=== PATIENT | male | born 1970 | race Asian ===

== ENCOUNTER 2019-01-10 12:12 | Inpatient (IN) | payer OTHER ==
[~2019-01-10] VITALS: Ht 172.7 cm; Wt 70.9 kg
[2019-01-10] MEDS ORDERED: dilTIAZem HCl 25mg/5ml Inj IVP ONE (12:15)
[2019-01-10 12:20] VITALS: BP 128/91
[2019-01-10] MEDS ORDERED: LORazepam Inj 2mg/ml 1ml IV ONE (12:30)
[2019-01-10] MEDS ORDERED: QUETIAPINE FUMA25 MG ORAL (12:34)
[2019-01-10] MEDS ORDERED: KEPPRA500 M4 ORAL (12:34)
[2019-01-10 12:40] LABS: HEMATOCRIT 48.5 % (42.0-52.0); HEMOGLOBIN 16.9 G/DL (14.2-18.0); MEAN CORPUSCULAR VOLUME 91 FL (80-99); PLATELET COUNT 366 K/UL (150-450); RED BLOOD COUNT 5.32 M/UL (4.70-6.10); RED CELL DISTRIBUTION WIDTH 10.2 % (11.6-14.8); WHITE BLOOD COUNT 10.6 K/UL (4.8-10.8)
[2019-01-10 12:46] LABS: INR 0.9 (0.9-1.1)
--- NOTE | 2019-01-10 13:39 | Emergency Room Report ---
History of Present Illness General Chief Complaint: Palpitations Source: Patient Present Illness HPI 48-year-old male history of speech impediment, presents with palpitations that started at 9:30 AM, he denies any chest pain shortness of breath no nausea no vomiting he states the palpitations came out of nowhere he states he has had tachycardia in the past that has self resolved, no aggravating or relieving factors severity is moderate, constant patient presents for evaluation via EMS Allergies: Coded Allergies: No Known Allergies (Unverified , 01/10/19) Patient History Past Medical History: see triage record Reviewed Nursing Documentation: PMH: Agreed; PSxH: Agreed Nursing Documentation-PMH Past Medical History: No History, Except For Hx Cardiac Problems: No - brain cyst Hx Hypertension: Yes Review of Systems All Other Systems: negative except mentioned in HPI Physical Exam Vital Signs Date Time Temp Pulse Resp B/P (MAP) Pulse Ox O2 Delivery O2 Flow Rate FiO2 01/10/19 12:08 100.0 122 16 148/100 (116) 99 Room Air Sp02 EP Interpretation: reviewed, normal General Appearance: well appearing, no apparent distress, alert Head: normocephalic, atraumatic Eyes: bilateral eye PERRL, bilateral eye EOMI ENT: uvula midline, moist mucus membranes Neck: supple, thyroid normal, supple/symm/no masses Respiratory: lungs clear, no respiratory distress, no retraction, no accessory muscle use Cardiovascular #1: normal peripheral pulses, no edema, no gallop, no murmur, tachycardia Gastrointestinal: non tender, no guarding, no rebound, distended Musculoskeletal: normal inspection Neurologic: alert, oriented x3 Psychiatric: mood/affect normal Skin: no rash, warm/dry Medical Decision Making Diagnostic Impression: Primary Impression: Palpitations Additional Impressions: 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 Bowel obstruction Qualified Codes: K56.609 - Unspecified intestinal obstruction, unspecified as to partial versus complete obstruction ER Course 48-year-old male presents with palpitations, differential diagnosis includes hypothyroidism, AVNRT, polysubstance abuse We will start hydration, will provide Ativan, liters of fluid were given Repeat EKG 1310: Sinus tachycardia, rate 119, QTc 450, no acute ST elevations, normal axis Reevaluation 3:16 PM, patient found to have an obstruction on CT pyloric stenosis NG tube inserted, patient will be admitted to the hospital for possible operative management Laboratory Tests Test 01/10/19 12:20 01/10/19 13:47 White Blood Count 10.6 K/UL (4.8-10.8) Red Blood Count 5.32 M/UL (4.70-6.10) Hemoglobin 16.9 G/DL (14.2-18.0) Hematocrit 48.5 % (42.0-52.0) Mean Corpuscular Volume 91 FL (80-99) Mean Corpuscular Hemoglobin 31.7 PG (27.0-31.0) H Mean Corpuscular Hemoglobin Concent 34.8 G/DL (32.0-36.0) Red Cell Distribution Width 10.2 % (11.6-14.8) L Platelet Count 366 K/UL (150-450) Mean Platelet Volume 5.3 FL (6.5-10.1) L Neutrophils (%) (Auto) % (45.0-75.0) Lymphocytes (%) (Auto) % (20.0-45.0) Monocytes (%) (Auto) % (1.0-10.0) Eosinophils (%) (Auto) % (0.0-3.0) Basophils (%) (Auto) % (0.0-2.0) Differential Total Cells Counted 100 Neutrophils % (Manual) 95 % (45-75) H Lymphocytes % (Manual) 3 % (20-45) L Monocytes % (Manual) 2 % (1-10) Eosinophils % (Manual) 0 % (0-3) Basophils % (Manual) 0 % (0-2) Band Neutrophils 0 % (0-8) Platelet Estimate Adequate Platelet Morphology Normal Red Blood Cell Morphology Normal Prothrombin Time 9.6 SEC (9.30-11.50) Prothrombin Time INR 0.9 (0.9-1.1) PTT 25 SEC (23-33) Sodium Level 142 MMOL/L (136-145) Potassium Level 3.6 MMOL/L (3.5-5.1) Chloride Level 107 MMOL/L (98-107) Carbon Dioxide Level 26 MMOL/L (21-32) Anion Gap 9 mmol/L (5-15) Blood Urea Nitrogen 11 mg/dL (7-18) Creatinine 0.9 MG/DL (0.55-1.30) Estimate Glomerular Filtration Rate > 60 mL/min (>60) Glucose Level 136 MG/DL (74-106) H Calcium Level 8.2 MG/DL (8.5-10.1) L Phosphorus Level 2.3 MG/DL (2.5-4.9) L Magnesium Level 1.9 MG/DL (1.8-2.4) Total Bilirubin 0.6 MG/DL (0.2-1.0) Aspartate Amino Transferase (AST) 30 U/L (15-37) Alanine Aminotransferase (ALT) 62 U/L (12-78) Alkaline Phosphatase 84 U/L (46-116) Troponin I 0.041 ng/mL (0.000-0.056) Pro-B-Type Natriuretic Peptide 69 pg/mL (0-125) Total Protein 7.5 G/DL (6.4-8.2) Albumin 3.7 G/DL (3.4-5.0) Globulin 3.8 g/dL Albumin/Globulin Ratio 1.0 (1.0-2.7) Lipase 161 U/L (73-393) Thyroid Stimulating Hormone (TSH) 0.598 uiU/mL (0.358-3.740) Free Thyroxine 0.88 NG/DL (0.76-1.46) Free Triiodothyronine 2.6 pg/mL (2.3-4.2) Urine Color Yellow Urine Appearance Clear Urine pH 5 (4.5-8.0) Urine Specific [place] 1.015 (1.005-1.035) Urine Protein 1+ (NEGATIVE) H Urine Glucose (UA) Negative (NEGATIVE) Urine Ketones Negative (NEGATIVE) Urine Blood Negative (NEGATIVE) Urine Nitrite Negative (NEGATIVE) Urine Bilirubin Negative (NEGATIVE) Urine Urobilinogen Normal MG/DL (0.0-1.0) Urine Leukocyte Esterase Negative (NEGATIVE) Urine RBC 0 /HPF (0 - 0) Urine WBC 0-2 /HPF (0 - 0) Urine Squamous Epithelial Cells Occasional /LPF Urine Bacteria Occasional /HPF (NONE) Urine Mucus Moderate /LPF (NONE/OCC) H Urine Opiates Screen Negative (NEGATIVE) Urine Barbiturates Screen Negative (NEGATIVE) Phencyclidine (PCP) Screen Negative (NEGATIVE) Urine Amphetamines Screen Negative (NEGATIVE) Urine Benzodiazepines Screen Negative (NEGATIVE) Urine Cocaine Screen Negative (NEGATIVE) Urine Marijuana (THC) Screen Negative (NEGATIVE) EKG Diagnostic Results EKG Time: 12:19 EP Interpretation: Sinus tachycardia, rate 122, no acute ST elevations, normal axis, QTC 444 Rhythm Strip Diag. Results Rhythm Strip Time: 14:38 EP Interpretation: yes Rate: 121 Rhythm: other - Sinus Tachycardia Chest X-Ray Diagnostic Results Chest X-Ray Diagnostic Results : Chest X-Ray Ordered: Yes # of Views/Limited/Complete: 1 View Indication: Other - Palpitations EP Interpretation: Yes Interpretation: no consolidation, no effusion, no pneumothorax, no acute cardiopulmonary disease Impression: No acute disease Electronically Signed by: Lazaro Tai MD CT/MRI/US Diagnostic Results CT/MRI/US Diagnostic Results : Impression Preliminary Findings Only See Final Report For Complete Findings CT CHEST W/WO Contrast: No PE or aortic dissection. No acute pulmonary infiltrate. CT ABDOMEN & PELVIS W/WO Contrast: Markedly distended stomach. No clear outlet obstructing mass, but possible stricture at the pylorus. No perforation. Fluid-filled colon suggesting diarrheal illness. Unremarkable appendix. No abdominal aortic aneurysm. No significant atherosclerotic disease. Radiologist: Lazaro Goldsmith M.D. Study ready at 14:39 and initial results transmitted at 15:09 Last Vital Signs Date Time Temp Pulse Resp B/P (MAP) Pulse Ox O2 Delivery O2 Flow Rate FiO2 01/10/19 12:20 99.8 133 14 128/91 99 Room Air Disposition: ADMITTED INPATIENT Condition: Stable Lazaro Tai MD Jan 10, 2019 13:39
[2019-01-10] MEDS ORDERED: Omnipaue 350mg/ml 100ml vial INJ PRN ×2 (13:45)
[2019-01-10 13:55] LABS: ALANINE AMINOTRANSFERASE 62 U/L (12-78); ALBUMIN 3.7 G/DL (3.4-5.0); ALKALINE PHOSPHATASE 84 U/L (46-116); ANION GAP 9 mmol/L (5-15); ASPARTATE AMINO TRANSFERASE 30 U/L (15-37); BILIRUBIN,TOTAL 0.6 MG/DL (0.2-1.0); BLOOD UREA NITROGEN 11 mg/dL (7-18); CALCIUM 8.2 MG/DL (8.5-10.1); CARBON DIOXIDE 26 MMOL/L (21-32); CHLORIDE 107 MMOL/L (98-107); CREATININE 0.9 MG/DL (0.55-1.30); PHOSPHORUS 2.3 MG/DL (2.5-4.9); POTASSIUM 3.6 MMOL/L (3.5-5.1); SODIUM 142 MMOL/L (136-145)
[2019-01-10 14:03] LABS: APPEARANCE,URINE CLEAR; BILIRUBIN, URINE NEGATIVE (NEGATIVE); GLUCOSE, URINE (UA) NEGATIVE (NEGATIVE); KETONES,URINE NEGATIVE (NEGATIVE); LEUKOCYTE ESTERASE ,URINE NEGATIVE (NEGATIVE); NITRITE,URINE NEGATIVE (NEGATIVE); PH,URINE 5 (4.5-8.0); PROTEIN,URINE 1+ (NEGATIVE); UROBILINOGEN,URINE NORMAL MG/DL (0.0-1.0)
[2019-01-10 14:08] LABS: COLOR,URINE YELLOW
[2019-01-10 14:17] VITALS: BP 133/88
[2019-01-10] MEDS ORDERED: Metoclopramide 10mg/2ml Inj IVP ONE (14:45)
--- NOTE | 2019-01-10 15:10 | Diagnostic Imaging Report ---
Indication: Chest and abdominal pain Technique: Continuous helical transaxial imaging of the chest, abdomen and pelvis was obtained from the thoracic inlet to the pubic symphysis during rapid intravenous contrast administration. Arterial phase of enhancement obtained. Coronal 2-D reformats were also obtained and maximum intensity projection images in multiple planes. Study obtained in a Siemens sensation [address] Total Dose length Product (DLP): 1330.[address] Dose Index Volume (CTDIvol): 91.6 mGy Comparison: None Findings: CTA CHEST: There is no evidence of pulmonary embolus or aortic dissection or aneurysm. Aorta appears normal in caliber without dissection. There is a small hiatal hernia. Lungs are clear. No adenopathy or abnormal fluid collections are identified. CTA abdomen pelvis: The abdominal aorta appears normal. Major vessels including the celiac artery, SMA, bilateral renal arteries and MARGOT appear normal. The iliac and visualized common femoral arteries are unremarkable. Mildly distended fluid-filled loops of small bowel noted within the abdomen. Consider enteritis/ileus. The appendix is normal. There is no free fluid. Both kidneys enhance normally. Kidneys are only seen during arterial phase. The liver is slightly hypodense. Gallbladder is unremarkable. IMPRESSION: No evidence of pulmonary embolus aortic dissection or aneurysm. Normal appearance of the abdominal aorta. Fatty liver Mild distended fluid-filled small bowel. Consider enteritis. [facility] has communicated the preliminary results to the Emergency Department. Their findings are largely concordant with this report. The CT scanner at [facility] is accredited by the [employer] and the scans are performed using dose optimization techniques as appropriate to a performed exam including Automatic Exposure control.
--- NOTE | 2019-01-10 16:09 | Diagnostic Imaging Report ---
Indication: NG tube placement Comparison: None Single view of the abdomen obtained Findings: NG tube is high in requires advancement. The proximal port is above the EG junction. IMPRESSION: NG tube requires advancement by several centimeters
[2019-01-10 16:46] VITALS: BP 124/88
[2019-01-10 20:00] VITALS: BP 135/90
[2019-01-10] MEDS ORDERED: Hydromorphone 0.5mg/0.5ml inj IVP PRN (20:15)
[2019-01-10] MEDS: levETIRAcetam 500mg/5ml Liquid NG SCH (21:08)
[2019-01-10] MEDS: Pantoprazole Inj IVP SCH (21:08)
[2019-01-10] MEDS: D5NS 1,000 ML IV SCH (21:09)
[2019-01-10] MEDS: Heparin 5000 units/ml inj SUBQ SCH (21:11)
--- NOTE | 2019-01-10 22:27 | History & Physical ---
History and Physical History & Physicial History and Physical HPI 48-year-old male history of speech impediment, epilepsy, presents with palpitations, he denies any chest pain shortness of breath no nausea no vomiting , he states he has had tachycardia in the past that has self resolved, no aggravating or relieving factors. Noted to have features of Pyloric Stenosis on CT Abdomen Allergies: No Known Allergies Past Medical History: Hypertension, Speech impediment, Brain Cyst, Epilepsy All Other Systems: negative except mentioned in HPI Physical Exam Vital Signs Noted Date Time Temp Pulse Resp B/P (MAP) Pulse Ox O2 Delivery O2 Flow Rate FiO2 01/10/19 12:08 100.0 122 16 148/100 (116) 99 Room Air General Appearance: well appearing, no apparent distress, alert Head: normocephalic, atraumatic Eyes: bilateral eye PERRL, bilateral eye EOMI ENT: uvula midline, moist mucus membranes Neck: supple, thyroid normal, supple/symm/no masses Respiratory: lungs clear, no respiratory distress, no retraction, no accessory muscle use Cardiovascular: normal peripheral pulses, HS1,HS2 normal, no gallop, no murmur , tachycardia Gastrointestinal: non tender, no guarding, no rebound, distended Musculoskeletal: normal inspection Neurologic: alert, oriented x3 Skin: no rash, warm/dry, no edema Impression: Palpitations 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 Dehydration Seizure Disorder Speech Impediment Plan: - IVF - NG Tube - LIS - Surgery Consulted - Monitor labs - PHYSICIAN NON INVASIVE CARDIOLOGIST Medications - PPX - O2 PRN Laboratory Tests Test 01/10/19 12:20 01/10/19 13:47 White Blood Count 10.6 K/UL (4.8-10.8) Red Blood Count 5.32 M/UL (4.70-6.10) Hemoglobin 16.9 G/DL (14.2-18.0) Hematocrit 48.5 % (42.0-52.0) Mean Corpuscular Volume 91 FL (80-99) Mean Corpuscular Hemoglobin 31.7 PG (27.0-31.0) H Mean Corpuscular Hemoglobin Concent 34.8 G/DL (32.0-36.0) Red Cell Distribution Width 10.2 % (11.6-14.8) L Platelet Count 366 K/UL (150-450) Mean Platelet Volume 5.3 FL (6.5-10.1) L Neutrophils (%) (Auto) % (45.0-75.0) Lymphocytes (%) (Auto) % (20.0-45.0) Monocytes (%) (Auto) % (1.0-10.0) Eosinophils (%) (Auto) % (0.0-3.0) Basophils (%) (Auto) % (0.0-2.0) Differential Total Cells Counted 100 Neutrophils % (Manual) 95 % (45-75) H Lymphocytes % (Manual) 3 % (20-45) L Monocytes % (Manual) 2 % (1-10) Eosinophils % (Manual) 0 % (0-3) Basophils % (Manual) 0 % (0-2) Band Neutrophils 0 % (0-8) Platelet Estimate Adequate Platelet Morphology Normal Red Blood Cell Morphology Normal Prothrombin Time 9.6 SEC (9.30-11.50) Prothrombin Time INR 0.9 (0.9-1.1) PTT 25 SEC (23-33) Sodium Level 142 MMOL/L (136-145) Potassium Level 3.6 MMOL/L (3.5-5.1) Chloride Level 107 MMOL/L (98-107) Carbon Dioxide Level 26 MMOL/L (21-32) Anion Gap 9 mmol/L (5-15) Blood Urea Nitrogen 11 mg/dL (7-18) Creatinine 0.9 MG/DL (0.55-1.30) Estimate Glomerular Filtration Rate > 60 mL/min (>60) Glucose Level 136 MG/DL (74-106) H Calcium Level 8.2 MG/DL (8.5-10.1) L Phosphorus Level 2.3 MG/DL (2.5-4.9) L Magnesium Level 1.9 MG/DL (1.8-2.4) Total Bilirubin 0.6 MG/DL (0.2-1.0) Aspartate Amino Transferase (AST) 30 U/L (15-37) Alanine Aminotransferase (ALT) 62 U/L (12-78) Alkaline Phosphatase 84 U/L (46-116) Troponin I 0.041 ng/mL (0.000-0.056) Pro-B-Type Natriuretic Peptide 69 pg/mL (0-125) Total Protein 7.5 G/DL (6.4-8.2) Albumin 3.7 G/DL (3.4-5.0) Globulin 3.8 g/dL Albumin/Globulin Ratio 1.0 (1.0-2.7) Lipase 161 U/L (73-393) Thyroid Stimulating Hormone (TSH) 0.598 uiU/mL (0.358-3.740) Free Thyroxine 0.88 NG/DL (0.76-1.46) Free Triiodothyronine 2.6 pg/mL (2.3-4.2) Urine Color Yellow Urine Appearance Clear Urine pH 5 (4.5-8.0) Urine Specific [place] 1.015 (1.005-1.035) Urine Protein 1+ (NEGATIVE) H Urine Glucose (UA) Negative (NEGATIVE) Urine Ketones Negative (NEGATIVE) Urine Blood Negative (NEGATIVE) Urine Nitrite Negative (NEGATIVE) Urine Bilirubin Negative (NEGATIVE) Urine Urobilinogen Normal MG/DL (0.0-1.0) Urine Leukocyte Esterase Negative (NEGATIVE) Urine RBC 0 /HPF (0 - 0) Urine WBC 0-2 /HPF (0 - 0) Urine Squamous Epithelial Cells Occasional /LPF Urine Bacteria Occasional /HPF (NONE) Urine Mucus Moderate /LPF (NONE/OCC) H Urine Opiates Screen Negative (NEGATIVE) Urine Barbiturates Screen Negative (NEGATIVE) Phencyclidine (PCP) Screen Negative (NEGATIVE) Urine Amphetamines Screen Negative (NEGATIVE) Urine Benzodiazepines Screen Negative (NEGATIVE) Urine Cocaine Screen Negative (NEGATIVE) Urine Marijuana (THC) Screen Negative (NEGATIVE) EKG : Sinus tachycardia, rate 122, no acute ST elevations, normal axis, QTC 444 Chest X-Ray: no consolidation, no effusion, no pneumothorax, no acute cardiopulmonary disease CT CHEST W/WO Contrast: No PE or aortic dissection. No acute pulmonary infiltrate. CT ABDOMEN & PELVIS W/WO Contrast: Markedly distended stomach. No clear outlet obstructing mass, but possible stricture at the pylorus. No perforation. Fluid-filled colon suggesting diarrheal illness. Unremarkable appendix. No abdominal aortic aneurysm. No significant atherosclerotic disease. Jesus Young MD Jan 10, 2019 22:27
[2019-01-11] VITALS: BP 127/85
[2019-01-11 04:00] VITALS: BP 133/97
[2019-01-11] MEDS: D5NS 1,000 ML IV SCH (05:53)
[2019-01-11 07:31] LABS: BASOPHILS % (AUTO) 0.4 % (0.0-2.0); EOSINOPHILS % (AUTO) 1.5 % (0.0-3.0); HEMATOCRIT 42.1 % (42.0-52.0); HEMOGLOBIN 14.9 G/DL (14.2-18.0); LYMPHOCYTES % (AUTO) 12.6 % (20.0-45.0); MEAN CORPUSCULAR VOLUME 91 FL (80-99); MONOCYTES % (AUTO) 7.6 % (1.0-10.0); NEUTROPHILS % (AUTO) 77.8 % (45.0-75.0); PLATELET COUNT 271 K/UL (150-450); RED BLOOD COUNT 4.64 M/UL (4.70-6.10); RED CELL DISTRIBUTION WIDTH 10.2 % (11.6-14.8); WHITE BLOOD COUNT 6.2 K/UL (4.8-10.8)
[2019-01-11 07:51] LABS: ANION GAP 10 mmol/L (5-15); BLOOD UREA NITROGEN 7 mg/dL (7-18); CARBON DIOXIDE 22 MMOL/L (21-32); CHLORIDE 108 MMOL/L (98-107); CREATININE 0.7 MG/DL (0.55-1.30); POTASSIUM 2.9 MMOL/L (3.5-5.1); SODIUM 140 MMOL/L (136-145)
[2019-01-11 08:00] VITALS: BP 143/93
--- NOTE | 2019-01-11 08:37 | General Progress Note ---
Assessment/Plan Assessment/Plan: Impression: Palpitations Pyloric stenosis Dehydration Seizure Disorder Speech Impediment Plan: - IVF - NG Tube -GI evaluation - Surgery Consulted - Monitor labs - advance diet once cleare - dc planning pending gi and gs evaluation impression, plan, and exam edited and reviewed in detail care discussed with RN Subjective Allergies: Coded Allergies: No Known Allergies (Unverified , 01/10/19) Subjective NGT in place improved Objective Last 24 Hour Vital Signs Date Time Temp Pulse Resp B/P (MAP) Pulse Ox O2 Delivery O2 Flow Rate FiO2 01/11/19 08:00 98.3 109 20 143/93 (110) 97 109 01/11/19 04:00 111 01/11/19 04:00 97.7 120 18 133/97 (109) 96 120 01/11/19 00:45 Room Air 01/11/19 00:00 111 01/11/19 00:00 98.4 115 17 127/85 (99) 97 115 01/10/19 22:19 Room Air 01/10/19 21:19 Room Air 01/10/19 20:00 116 01/10/19 20:00 98.0 110 19 135/90 (105) 97 110 01/10/19 18:25 126 01/10/19 18:00 99.2 124 22 124/88 95 Room Air 01/10/19 16:46 99.2 124 24 124/88 95 Room Air 01/10/19 14:17 97.8 124 24 133/88 99 Room Air 01/10/19 12:20 99.8 133 14 128/91 99 Room Air 01/10/19 12:08 100.0 122 16 148/100 (116) 99 Room Air Intake and Output 01/10/19 01/11/19 18:59 06:59 Intake Total 3240 ml Output Total 1100 ml Balance 2140 ml Intake Oral 240 ml IV Total 3000 ml Gastric Drainage Total 1100 ml # Voids 4 # Bowel Movements 1 Laboratory Tests 01/10/19 12:20: White Blood Count 10.6, Red Blood Count 5.32, Hemoglobin 16.9, Hematocrit 48.5, Mean Corpuscular Volume 91, Mean Corpuscular Hemoglobin 31.7H, Mean Corpuscular Hemoglobin Concent 34.8, Red Cell Distribution Width 10.2L, Platelet Count 366, Mean Platelet Volume 5.3L, Neutrophils (%) (Auto) , Lymphocytes (%) (Auto) , Monocytes (%) (Auto) , Eosinophils (%) (Auto) , Basophils (%) (Auto) , Differential Total Cells Counted 100, Neutrophils % (Manual) 95H, Lymphocytes % (Manual) 3L, Monocytes % (Manual) 2, Eosinophils % (Manual) 0, Basophils % ( Manual) 0, Band Neutrophils 0, Platelet Estimate Adequate, Platelet Morphology Normal, Red Blood Cell Morphology Normal, Prothrombin Time 9.6, Prothromb Time International Ratio 0.9, Activated Partial Thromboplast Time 25, Sodium Level 142, Potassium Level 3.6, Chloride Level 107, Carbon Dioxide Level 26, Anion Gap 9, Blood Urea Nitrogen 11, Creatinine 0.9, Estimat Glomerular Filtration Rate > 60, Glucose Level 136H, Calcium Level 8.2L, Phosphorus Level 2.3L, Magnesium Level 1.9, Total Bilirubin 0.6, Aspartate Amino Transf (AST/SGOT) 30, Alanine Aminotransferase (ALT/SGPT) 62, Alkaline Phosphatase 84, Troponin I 0.041, Pro-B-Type Natriuretic Peptide 69, Total Protein 7.5, Albumin 3.7, Globulin 3.8, Albumin/Globulin Ratio 1.0, Lipase 161, Thyroid Stimulating Hormone (TSH) 0.598, Free Thyroxine 0.88, Free Triiodothyronine 2.6 01/10/19 13:47: Urine Color Yellow, Urine Appearance Clear, Urine pH 5, Urine Specific [place] 1.015, Urine Protein 1+H, Urine Glucose (UA) Negative, Urine Ketones Negative, Urine Blood Negative, Urine Nitrite Negative, Urine Bilirubin Negative, Urine Urobilinogen Normal, Urine Leukocyte Esterase Negative, Urine RBC 0, Urine WBC 0 -2, Urine Squamous Epithelial Cells Occasional, Urine Bacteria Occasional, Urine Mucus ModerateH, Urine Opiates Screen Negative, Urine Barbiturates Screen Negative, Phencyclidine (PCP) Screen Negative, Urine Amphetamines Screen Negative, Urine Benzodiazepines Screen Negative, Urine Cocaine Screen Negative, Urine Marijuana (THC) Screen Negative 01/11/19 05:12: White Blood Count 6.2, Red Blood Count 4.64L, Hemoglobin 14.9, Hematocrit 42.1, Mean Corpuscular Volume 91, Mean Corpuscular Hemoglobin 32.2H, Mean Corpuscular Hemoglobin Concent 35.5, Red Cell Distribution Width 10.2L, Platelet Count 271, Mean Platelet Volume 5.7L, Neutrophils (%) (Auto) 77.8H, Lymphocytes (%) (Auto) 12.6L, Monocytes (%) (Auto) 7.6, Eosinophils (%) (Auto) 1.5, Basophils (%) (Auto ) 0.4, Sodium Level 140, Potassium Level 2.9L, Chloride Level 108H, Carbon Dioxide Level 22, Anion Gap 10, Blood Urea Nitrogen 7, Creatinine 0.7, Estimat Glomerular Filtration Rate > 60, Glucose Level 105, Calcium Level 7.0L Height (Feet): 5 Height (Inches): 8.00 Weight (Pounds): 170 Objective WDWN NAD clear breath sounds bilaterally without rhonchi or wheeze [id number] without MRG NABS nontender no HSM no CCE nonfocal Kurt Isaac MD Jan 11, 2019 08:37
[2019-01-11] MEDS: levETIRAcetam 500mg/5ml Liquid NG SCH ×2 (08:44→20:53)
[2019-01-11] MEDS: Pantoprazole Inj IVP SCH (08:44)
[2019-01-11] MEDS: Heparin 5000 units/ml inj SUBQ SCH ×2 (08:47→20:54)
--- NOTE | 2019-01-11 10:20 | General Progress Note ---
Assessment/Plan Assessment/Plan: GI CONSULT Assessment: - N/V - possible gastric outlet obstruction per CT Recommendations: - NGT to LIS - PPI IV - EGD Wed am Thank you Iqra Tracey MD Subjective Allergies: Coded Allergies: No Known Allergies (Unverified , 01/10/19) Objective Last 24 Hour Vital Signs Date Time Temp Pulse Resp B/P (MAP) Pulse Ox O2 Delivery O2 Flow Rate FiO2 01/11/19 08:00 98.3 109 20 143/93 (110) 97 109 01/11/19 04:00 111 01/11/19 04:00 97.7 120 18 133/97 (109) 96 120 01/11/19 00:45 Room Air 01/11/19 00:00 111 01/11/19 00:00 98.4 115 17 127/85 (99) 97 115 01/10/19 22:19 Room Air 01/10/19 21:19 Room Air 01/10/19 20:00 116 01/10/19 20:00 98.0 110 19 135/90 (105) 97 110 01/10/19 18:25 126 01/10/19 18:00 99.2 124 22 124/88 95 Room Air 01/10/19 16:46 99.2 124 24 124/88 95 Room Air 01/10/19 14:17 97.8 124 24 133/88 99 Room Air 01/10/19 12:20 99.8 133 14 128/91 99 Room Air 01/10/19 12:08 100.0 122 16 148/100 (116) 99 Room Air Intake and Output 01/10/19 01/11/19 18:59 06:59 Intake Total 3240 ml Output Total 1100 ml Balance 2140 ml Intake Oral 240 ml IV Total 3000 ml Gastric Drainage Total 1100 ml # Voids 4 # Bowel Movements 1 Laboratory Tests 01/10/19 12:20: White Blood Count 10.6, Red Blood Count 5.32, Hemoglobin 16.9, Hematocrit 48.5, Mean Corpuscular Volume 91, Mean Corpuscular Hemoglobin 31.7H, Mean Corpuscular Hemoglobin Concent 34.8, Red Cell Distribution Width 10.2L, Platelet Count 366, Mean Platelet Volume 5.3L, Neutrophils (%) (Auto) , Lymphocytes (%) (Auto) , Monocytes (%) (Auto) , Eosinophils (%) (Auto) , Basophils (%) (Auto) , Differential Total Cells Counted 100, Neutrophils % (Manual) 95H, Lymphocytes % (Manual) 3L, Monocytes % (Manual) 2, Eosinophils % (Manual) 0, Basophils % ( Manual) 0, Band Neutrophils 0, Platelet Estimate Adequate, Platelet Morphology Normal, Red Blood Cell Morphology Normal, Prothrombin Time 9.6, Prothromb Time International Ratio 0.9, Activated Partial Thromboplast Time 25, Sodium Level 142, Potassium Level 3.6, Chloride Level 107, Carbon Dioxide Level 26, Anion Gap 9, Blood Urea Nitrogen 11, Creatinine 0.9, Estimat Glomerular Filtration Rate > 60, Glucose Level 136H, Calcium Level 8.2L, Phosphorus Level 2.3L, Magnesium Level 1.9, Total Bilirubin 0.6, Aspartate Amino Transf (AST/SGOT) 30, Alanine Aminotransferase (ALT/SGPT) 62, Alkaline Phosphatase 84, Troponin I 0.041, Pro-B-Type Natriuretic Peptide 69, Total Protein 7.5, Albumin 3.7, Globulin 3.8, Albumin/Globulin Ratio 1.0, Lipase 161, Thyroid Stimulating Hormone (TSH) 0.598, Free Thyroxine 0.88, Free Triiodothyronine 2.6 01/10/19 13:47: Urine Color Yellow, Urine Appearance Clear, Urine pH 5, Urine Specific [place] 1.015, Urine Protein 1+H, Urine Glucose (UA) Negative, Urine Ketones Negative, Urine Blood Negative, Urine Nitrite Negative, Urine Bilirubin Negative, Urine Urobilinogen Normal, Urine Leukocyte Esterase Negative, Urine RBC 0, Urine WBC 0 -2, Urine Squamous Epithelial Cells Occasional, Urine Bacteria Occasional, Urine Mucus ModerateH, Urine Opiates Screen Negative, Urine Barbiturates Screen Negative, Phencyclidine (PCP) Screen Negative, Urine Amphetamines Screen Negative, Urine Benzodiazepines Screen Negative, Urine Cocaine Screen Negative, Urine Marijuana (THC) Screen Negative 01/11/19 05:12: White Blood Count 6.2, Red Blood Count 4.64L, Hemoglobin 14.9, Hematocrit 42.1, Mean Corpuscular Volume 91, Mean Corpuscular Hemoglobin 32.2H, Mean Corpuscular Hemoglobin Concent 35.5, Red Cell Distribution Width 10.2L, Platelet Count 271, Mean Platelet Volume 5.7L, Neutrophils (%) (Auto) 77.8H, Lymphocytes (%) (Auto) 12.6L, Monocytes (%) (Auto) 7.6, Eosinophils (%) (Auto) 1.5, Basophils (%) (Auto ) 0.4, Sodium Level 140, Potassium Level 2.9L, Chloride Level 108H, Carbon Dioxide Level 22, Anion Gap 10, Blood Urea Nitrogen 7, Creatinine 0.7, Estimat Glomerular Filtration Rate > 60, Glucose Level 105, Calcium Level 7.0L Height (Feet): 5 Height (Inches): 8.00 Weight (Pounds): 170 Iqra Tracey MD Jan 11, 2019 10:20
[2019-01-11 12:00] VITALS: BP 115/90
--- NOTE | 2019-01-11 12:48 | Diagnostic Imaging Report ---
Indication: Dyspnea Comparison: None A single view chest radiograph was obtained. Findings: Cardiomediastinal appearance is within normal limits for age. The lungs are clear. Pulmonary vascularity is appropriate. The diaphragmatic contour is smooth and costophrenic angles are sharp. No pleural effusions are identified. The bones are unremarkable. Impression: No acute findings
[2019-01-11] MEDS: Potassium Phosphate 20 MEQ in D5NS 1,000 ML IV SCH ×2 (13:29→22:20)
--- NOTE | 2019-01-11 15:07 | Diagnostic Imaging Report ---
Indication: NG tube placement Comparison: 01/10/2019 Single view of the abdomen obtained Findings: NG tube tip and the proximal port are within the stomach. IMPRESSION: NG tube satisfactory in position
[2019-01-11 16:00] VITALS: BP 118/75
--- NOTE | 2019-01-11 16:00 | Consultation ---
DATE OF CONSULTATION: 01/11/2019 GASTROENTEROLOGY CONSULTATION REPORT CONSULTATION PHYSICIAN: Iqra Tracey M.D. REFERRING PHYSICIAN: Kurt Isaac M.D. CHIEF COMPLAINT: I was asked to see this patient by Dr. Kurt Isaac for evaluation of pyloric stenosis. HISTORY OF PRESENT ILLNESS: The patient is a 48-year-old man with some degree of neurological disorder causing speech impairment and epilepsy who comes into the hospital due to palpitations. The patient had a CT scan done, which showed some gastric outlet obstruction, possibly due to pyloric channel stenosis. A nasogastric tube has been placed and this consultation was generated. The patient does note some degree of nausea for about two days prior to admission. There was one episode of vomiting. However, he overall feels better. He denies any pain. He also had diarrhea for about three days. He had an endoscopy and colonoscopy about 10 years ago and he thinks results were negative, but otherwise no details were available. He does take aspirin on a daily basis. He has had no recent antibiotics. PAST MEDICAL HISTORY: History of hypertension, speech impediment, brain cyst, epilepsy. ALLERGIES: None. FAMILY HISTORY: Noncontributory. SOCIAL HISTORY: The patient denies any smoking or drinking. REVIEW OF SYSTEMS: Otherwise negative. PHYSICAL EXAMINATION: GENERAL: A pleasant man, seen in his room. HEENT: Normocephalic and atraumatic. Sclerae anicteric. Oropharynx clear. NECK: Supple. CHEST: Clear to auscultation. CARDIOVASCULAR: Revealed regular rate. ABDOMEN: Soft, nontender. Good bowel sounds. EXTREMITIES: Revealed no edema. LABORATORY DATA: Noted. ASSESSMENT: This patient presents with short-term symptoms of nausea and vomiting, and also CT scan findings suggest gastric outlet narrowing or obstruction. The patient should undergo endoscopy, both to evaluate the area to biopsy, abnormal lesions, and possibly dilated significant narrowing. For the time being, nasogastric to allow for decompression. The patient can undergo procedure if and when stable from medical standpoint. The indications, risks, alternatives, and possible complications of the procedure were explained to the patient and informed consent was obtained. The patient should be placed on proton pump inhibitor in the meantime. RECOMMENDATIONS: Per above discussion and per orders written in the chart. Thank you for asking me to participate in the care of this patient. Iqra Tracey M.D. DR: VISHAL JOB#: [id number] CC:
--- NOTE | 2019-01-11 16:45 | Consultation ---
DATE OF CONSULTATION: 01/11/2019 CARDIOLOGY CONSULTATION CONSULTING PHYSICIAN: Jesus Blair M.D. REFERRING PHYSICIAN: Kurt Isaac M.D. REASON: Preoperative cardiovascular evaluation for endoscopy. HISTORY OF PRESENT ILLNESS: This 48-year-old male presented to the emergency room with a rapid heart rate and abdominal pain. A CAT scan revealed a pyloric stenosis. He apparently has a history of a speech impediment and seizure disorder. PAST MEDICAL HISTORY: Further notable for brain cyst and hypertension. ALLERGIES: None. MEDICATIONS: Reviewed and reconciled. SOCIAL HISTORY: Negative for smoking, alcohol, or substance abuse. FAMILY HISTORY: Noncontributory. REVIEW OF SYSTEMS: Negative for any preexisting cardiovascular disease including rheumatic heart disease, cardiac arrhythmias, or endocarditis. PHYSICAL EXAMINATION: VITAL SIGNS: Blood pressure 143/93, heart rate 109, respirations 20, afebrile. HEENT: Conjunctiva pink. Oropharynx clear. NG tube in place. LUNGS: Clear. CARDIAC: Regular rhythm. Rapid rate. Normal S1, S2 with no murmur. ABDOMEN: Slightly distended. EXTREMITIES: There is no edema. LABORATORY DATA: White count 6, hemoglobin 14.9. Potassium 2.9. Troponin was 0.041 yesterday. Free T3 and T4 were within normal limits. Phosphorus 2.3. IMPRESSION: 1. Secondary sinus tachycardia. 2. Hypokalemia. 3. Hypophosphatemia. 4. Possible pyloric stenosis with probable gastric outlet obstruction. 5. Hypovolemia. 6. Dehydration. PLAN: 1. IV fluid hydration. 2. Replace electrolytes and phosphorus. 3. Check magnesium. 4. Echocardiogram to evaluate for structural heart disease. Jesus Blair M.D. : NERISSA JOB#: [id number] CC:
[2019-01-11 18:01] LABS: ANION GAP 8 mmol/L (5-15); BLOOD UREA NITROGEN 6 mg/dL (7-18); CALCIUM 6.9 MG/DL (8.5-10.1); CARBON DIOXIDE 24 MMOL/L (21-32); CHLORIDE 109 MMOL/L (98-107); CREATININE 0.7 MG/DL (0.55-1.30); POTASSIUM 3.7 MMOL/L (3.5-5.1); SODIUM 141 MMOL/L (136-145)
--- NOTE | 2019-01-11 18:05 | Consultation ---
History of Present Illness General Date patient seen: Jan 11, 2019 Reason for Hospitalization: Palpitations Present Illness HPI 48-year-old man with hx of neurological disorder / intracranial cyst causing speech impairment and epilepsy who comes into the hospital due to palpitations. The patient had a CT scan done, which showed some gastric outlet obstruction, possibly due to pyloric channel stenosis. A nasogastric tube has been placed and surgery was called to evaluate. The patient does note some degree of nausea for about two days prior to admission and had non bloody emesis which scared him and he called EMS for care to hospital. He denies any pain. He also had diarrhea for about three days. He had an endoscopy and colonoscopy about 10 years ago and he thinks results were negative, but otherwise no details were available. currently n/v improved. labs okay feels better with ng tube Allergies: Coded Allergies: No Known Allergies (Unverified , 01/10/19) Medication History Scheduled Levetiracetam (Keppra), 500 MG ORAL EVERY 12 HOURS, (Reported) Quetiapine Fumarate* (Seroquel*), Unknown Dose ORAL DAILY, (Reported) Patient History History Provided By: Patient Healthcare decision maker Resuscitation status Advanced Directive on File Past Medical/Surgical History Past Medical/Surgical History: (1) Palpitations (2) Bowel obstruction (3) 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 Review of Systems Review of Symptoms General ROS: no weight loss or fever Psychological ROS: no depression or mood changes, no memory loss Ophthalmic ROS: no visual changes or eye irritation ENT ROS: no nasal congestion, hearing loss, dizziness Allergy and Immunology ROS: no allergic symptoms or urticaria Hematological and Lymphatic ROS: no swollen glands, unusual bleeding or bruising Endocrine ROS: no polyuria, polydipsia, weight changes, temperature intolerance Respiratory ROS: no cough, shortness of breath, or wheezing Cardiovascular ROS: no chest pain or dyspnea on exertion Gastrointestinal ROS: denies abdominal pain, bright red blood in stool. Musculoskeletal ROS: no myalgias or arthralgias Neurological ROS: no TIA or stroke symptoms Dermatological ROS: no new or changing skin lesions, rashes or pruritis Physical Exam Physical Exam General appearance: alert, cooperative, no distress, appears stated age Head: Normocephalic, without obvious abnormality, atraumatic Eyes: conjunctivae/corneas clear. PERRL, EOM's intact. Fundi benign Throat: Lips, mucosa, and tongue normal. Teeth and gums normal Neck: supple, symmetrical, trachea midline, no adenopathy, thyroid: not enlarged, symmetric, no tenderness/mass/nodules, no carotid bruit and no JVD Lungs: clear to auscultation bilaterally Heart: regular rate and rhythm, S1, S2 normal, no murmur, click, rub or gallop Abdomen: soft, non-tender. Bowel sounds normal. No masses, no organomegaly Extremities: extremities normal, atraumatic, no cyanosis or edema Pulses: 2+ and symmetric Skin: Skin color, texture, turgor normal. No rashes or lesions Neurologic: Grossly normal Last 24 Hour Vital Signs Date Time Temp Pulse Resp B/P (MAP) Pulse Ox O2 Delivery O2 Flow Rate FiO2 01/11/19 16:00 97.1 110 18 118/75 (89) 97 20 01/11/19 16:00 108 01/11/19 12:00 118 01/11/19 12:00 97.7 94 18 115/90 (98) 97 94 01/11/19 09:00 Room Air 01/11/19 08:00 118 01/11/19 08:00 98.3 109 20 143/93 (110) 97 109 01/11/19 04:00 111 01/11/19 04:00 97.7 120 18 133/97 (109) 96 120 01/11/19 00:45 Room Air 01/11/19 00:00 111 01/11/19 00:00 98.4 115 17 127/85 (99) 97 115 01/10/19 22:19 Room Air 01/10/19 21:19 Room Air 01/10/19 20:00 116 01/10/19 20:00 98.0 110 19 135/90 (105) 97 110 01/10/19 18:25 126 Intake and Output 01/10/19 01/11/19 19:00 07:00 Intake Total 3240 ml Output Total 1100 ml Balance 2140 ml Intake Oral 240 ml IV Total 3000 ml Gastric Drainage Total 1100 ml # Voids 4 # Bowel Movements 1 Laboratory Tests Test 01/11/19 05:12 01/11/19 17:35 White Blood Count 6.2 K/UL (4.8-10.8) Red Blood Count 4.64 M/UL (4.70-6.10) L Hemoglobin 14.9 G/DL (14.2-18.0) Hematocrit 42.1 % (42.0-52.0) Mean Corpuscular Volume 91 FL (80-99) Mean Corpuscular Hemoglobin 32.2 PG (27.0-31.0) H Mean Corpuscular Hemoglobin Concent 35.5 G/DL (32.0-36.0) Red Cell Distribution Width 10.2 % (11.6-14.8) L Platelet Count 271 K/UL (150-450) Mean Platelet Volume 5.7 FL (6.5-10.1) L Neutrophils (%) (Auto) 77.8 % (45.0-75.0) H Lymphocytes (%) (Auto) 12.6 % (20.0-45.0) L Monocytes (%) (Auto) 7.6 % (1.0-10.0) Eosinophils (%) (Auto) 1.5 % (0.0-3.0) Basophils (%) (Auto) 0.4 % (0.0-2.0) Sodium Level 140 MMOL/L (136-145) Pending Potassium Level 2.9 MMOL/L (3.5-5.1) L Pending Chloride Level 108 MMOL/L (98-107) H Pending Carbon Dioxide Level 22 MMOL/L (21-32) Pending Anion Gap 10 mmol/L (5-15) Blood Urea Nitrogen 7 mg/dL (7-18) Pending Creatinine 0.7 MG/DL (0.55-1.30) Pending Estimat Glomerular Filtration Rate > 60 mL/min (>60) Pending Glucose Level 105 MG/DL (74-106) Pending Calcium Level 7.0 MG/DL (8.5-10.1) L Pending Height (Feet): 5 Height (Inches): 8.00 Weight (Pounds): 170 Medications Current Medications Medications (Trade) Dose Ordered Sig/Baljit Route PRN Reason Start Time Stop Time Status Last Admin Dose Admin Acetaminophen (Tylenol) 650 mg Q6H PRN ORAL Mild Pain/Temp > 100.5 01/10/19 20:15 02/09/19 20:14 Heparin Sodium (Porcine) (Heparin 5000 units/ml) 5,000 units EVERY 12 HOURS SUBQ 01/10/19 21:00 02/09/19 20:59 01/11/19 08:47 Hydromorphone HCl (Dilaudid) 0.5 mg Q4H PRN IVP For severe pain 01/10/19 20:15 01/17/19 20:14 Iohexol (Omnipaque) 100 mg NOW PRN INJ Radiology Procedure 01/10/19 13:45 01/12/19 13:42 Iohexol (Omnipaque) 100 mg NOW PRN INJ Radiology Procedure 01/10/19 13:45 01/12/19 13:42 Levetiracetam (Keppra) 500 mg Q12HR NG 01/10/19 21:00 02/09/19 20:59 01/11/19 08:44 Ondansetron HCl (Zofran) 4 mg Q6H PRN IVP Nausea & Vomiting 01/10/19 20:15 02/09/19 20:14 01/10/19 21:26 Pantoprazole (Protonix) 40 mg DAILY IVP 01/10/19 20:30 02/09/19 20:29 01/11/19 08:44 Potassium Phosphate 20 meq/ Dextrose/Sodium Chloride 1,004.5455 ml @ 125 mls/hr Q8H3M IV 01/11/19 14:00 02/10/19 13:59 01/11/19 13:29 Quetiapine Fumarate (SEROqueL) 25 mg DAILY ORAL 01/10/19 21:00 02/09/19 20:59 01/11/19 08:44 Assessment/Plan Problem List: (1) Bowel obstruction Assessment & Plan: gastric outlet obstruction of unknown etiology improving with ng tube decompression states no pain labs okay exam benign abd soft, n/tnd, bs + passing flatus. diarrhea CTA abdomen pelvis: The abdominal aorta appears normal. Major vessels including the celiac artery, SMA, bilateral renal arteries and MARGOT appear normal. The iliac and visualized common femoral arteries are unremarkable. Mildly distended fluid-filled loops of small bowel noted within the abdomen. Consider enteritis/ileus. The appendix is normal. There is no free fluid. Both kidneys enhance normally. Kidneys are only seen during arterial phase. The liver is slightly hypodense. Gallbladder is unremarkable. IMPRESSION: No evidence of pulmonary embolus aortic dissection or aneurysm. Normal appearance of the abdominal aorta. Fatty liver Mild distended fluid-filled small bowel. Consider enteritis. Endoscopy as per GI to evaluate for etiology. stomach was huge on CT will monitor if mass or still obstruction, etc may need surgery will follow with recs npo iv fluids ng tube thank you ICD Codes: K56.609 - Unspecified intestinal obstruction, unspecified as to partial versus complete obstruction SNOMED: [id number] Mack Bryant Jan 11, 2019 18:05
--- NOTE | 2019-01-11 19:17 | Cardiology Report ---
APPROVED REPORT EKG Measurement Heart [id number] Sinus tachycardia T wave abnormality, consider inferior ischemia Abnormal ECG
--- NOTE | 2019-01-11 19:43 | Cardiology Report ---
APPROVED REPORT EXAM: Two-dimensional and M-mode echocardiogram with Doppler and color Doppler. INDICATION Palpitations M-Mode DIMENSIONS IVSd1.1 (0.7-1.1cm)Left Atrium (MM)3.4 (1.6-4.0cm) LVDd4.1 (3.5-5.6cm)Aortic Root3.0 (2.0-3.7cm) PWd1.0 (0.7-1.1cm)Aortic Cusp Exc.2.0 (1.5-2.0cm) LVDs2.6 (2.5-4.0cm) PWs1.4 cm Normal left ventricular chamber size, systolic function and wall motion. Left ventricular ejection fraction estimated to be 60-65 %. No evidence of pericardial effusion. All other cardiac chamber sizes are within normal limits. Mild focal aortic valve sclerosis with adequate cusp excursion. Mildly thickened mitral valve leaflets with normal excursion. Mild mitral annulus and aortic root calcification. Normal pulmonic valve structure. Normal tricuspid valve structure. IVC at normal size with physiologic collapse. A color flow and spectral Doppler study was performed and revealed: Trace to mild mitral regurgitation. Mitral diastolic velocities suggest reduced left ventricular relaxation c/w mild LV diastolic dysfunction (Grade I). Trace tricuspid regurgitation. Tricuspid systolic velocities suggests peak right ventricular systolic pressure of 16 mmHg.
[2019-01-11 20:00] VITALS: BP 142/94
[2019-01-12] VITALS (8 sets, daily range): BP systolic 132–144; BP diastolic 83–100
[2019-01-12] MEDS: Potassium Phosphate 20 MEQ in D5NS 1,000 ML IV SCH ×3 (06:06→22:23)
[2019-01-12] MEDS ORDERED: Propofol 200mg/20ml IV ONE (07:00)
[2019-01-12] MEDS ORDERED: Lidocaine 1% MPF 10mg/ml 5ml ONE (07:00)
[2019-01-12 07:02] LABS: BASOPHILS % (AUTO) 0.4 % (0.0-2.0); EOSINOPHILS % (AUTO) 2.2 % (0.0-3.0); HEMATOCRIT 40.7 % (42.0-52.0); LYMPHOCYTES % (AUTO) 12.1 % (20.0-45.0); MEAN CORPUSCULAR VOLUME 89 FL (80-99); MONOCYTES % (AUTO) 8.3 % (1.0-10.0); PLATELET COUNT 262 K/UL (150-450); RED BLOOD COUNT 4.59 M/UL (4.70-6.10); RED CELL DISTRIBUTION WIDTH 9.7 % (11.6-14.8); WHITE BLOOD COUNT 8.2 K/UL (4.8-10.8)
[2019-01-12 07:12] LABS: ANION GAP 7 mmol/L (5-15); CALCIUM 7.1 MG/DL (8.5-10.1); CARBON DIOXIDE 28 MMOL/L (21-32); CHLORIDE 108 MMOL/L (98-107); CREATININE 0.7 MG/DL (0.55-1.30); POTASSIUM 3.4 MMOL/L (3.5-5.1); SODIUM 142 MMOL/L (136-145)
[2019-01-12] MEDS ORDERED: NS 500ML IVPB ONE (07:12)
[2019-01-12] MEDS ORDERED: DiphenhydrAMINE 50mg/ml Inj IVP PRN (07:15)
[2019-01-12] MEDS ORDERED: Midazolam 2mg/2ml Inj IVP PRN (07:15)
[2019-01-12] MEDS ORDERED: Atropine Sulfate 0.4mg/ml inj IVP PRN (07:15)
[2019-01-12] MEDS ORDERED: fentaNYL 100 mcg/2 mL IV PRN (07:15)
--- NOTE | 2019-01-12 07:18 | Pre-Procedure Note/Attestation ---
Pre-Procedure Note/Attestation Complete Prior to Procedure Planned Procedure: not applicable Procedure Narrative: esophagogastroduodenoscopy possible dilation Indications for Procedure Pre-Operative Diagnosis: abnormal CT, suspected gastric outlet obstruction Attestation I attest that I discussed the nature of the procedure; its benefits; risks and complications; and alternatives (and the risks and benefits of such alternatives ), prior to the procedure, with the patient (or the patient's legal inbound sales representative). I attest that, if there was a reasonable possibility of needing a blood transfusion, the patient (or the patient's legal inbound sales representative) was given the [facility] standardized written summary, pursuant to the Hever Nicholas Blood Safety Act ([place] Health and Safety Code # 1645, as amended). I attest that I re-evaluated the patient just prior to the surgery and that there has been no change in the patient's H&P, except as documented below: Iqra Tracey MD Jan 12, 2019 07:18
--- NOTE | 2019-01-12 07:18 | General Progress Note ---
Assessment/Plan Assessment/Plan: Assessment: - N/V - improved - gastric dilation, r/o outlet obstruction - diarrhea, enteritis - mild hypokalemia - volume depletion - secondary sinus tach Recommendations: - PPI IV - EGD today - stool cultures - IV hydration - replace lytes PRN Subjective Allergies: Coded Allergies: No Known Allergies (Unverified , 01/10/19) Subjective Feels OK no chest pain or palpitation overnight no vomiting sinus rhythm/ST overnight d/w cardiology EGD re-scheduled for this am Objective Last 24 Hour Vital Signs Date Time Temp Pulse Resp B/P (MAP) Pulse Ox O2 Delivery O2 Flow Rate FiO2 01/12/19 04:00 97 01/12/19 00:00 98.0 92 16 136/88 (104) 97 01/12/19 00:00 92 01/11/19 21:00 Room Air 01/11/19 20:00 98.5 100 17 142/94 (110) 98 01/11/19 20:00 100 01/11/19 16:00 97.1 110 18 118/75 (89) 97 20 01/11/19 16:00 108 01/11/19 12:00 118 01/11/19 12:00 97.7 94 18 115/90 (98) 97 94 01/11/19 09:00 Room Air 01/11/19 08:00 118 01/11/19 08:00 98.3 109 20 143/93 (110) 97 109 Intake and Output 01/11/19 01/12/19 19:00 07:00 Intake Total 1325 ml 1375 ml Output Total 1800 ml Balance 1325 ml -425 ml IV Total 1325 ml 1375 ml Output Urine Total 1800 ml # Voids 3 4 # Bowel Movements 2 Laboratory Tests 01/11/19 17:35: Sodium Level 141, Potassium Level 3.7, Chloride Level 109H, Carbon Dioxide Level 24, Anion Gap 8, Blood Urea Nitrogen 6L, Creatinine 0.7, Estimat Glomerular Filtration Rate > 60, Glucose Level 94, Calcium Level 6.9L 01/12/19 06:50: Sodium Level 142, Potassium Level 3.4L, Chloride Level 108H, Carbon Dioxide Level 28, Anion Gap 7, Blood Urea Nitrogen 4L, Creatinine 0.7, Estimat Glomerular Filtration Rate > 60, Glucose Level 112H, Calcium Level 7.1L, White Blood Count 8.2, Red Blood Count 4.59L, Hemoglobin 15.0, Hematocrit 40.7L, Mean Corpuscular Volume 89, Mean Corpuscular Hemoglobin 32.8H, Mean Corpuscular Hemoglobin Concent 36.9H, Red Cell Distribution Width 9.7L, Platelet Count 262, Mean Platelet Volume 5.5L, Neutrophils (%) (Auto) 77.0H, Lymphocytes (%) (Auto) 12.1L, Monocytes (%) (Auto) 8.3, Eosinophils (%) (Auto) 2.2, Basophils (%) (Auto ) 0.4 Height (Feet): 5 Height (Inches): 8.00 Weight (Pounds): 170 Objective WDWN man NCAT, (+) NGT supple CTA RR abd soft ND no edema Iqra Tracey MD Jan 12, 2019 07:18
[2019-01-12 07:22] LABS: BLOOD UREA NITROGEN 5 mg/dL (7-18)
--- NOTE | 2019-01-12 07:30 | Anethesia Preoperative Eval ---
Anesthesia Pre-op PMH/ROS General Date of Evaluation: Jan 12, 2019 Time of Evaluation: 06:50 Anesthesiologist: bryan ASA Score: ASA 3 Mallampati Score Class I : Soft palate, uvula, fauces, pillars visible Class II: Soft palate, uvula, fauces visible Class III: Soft palate, base of uvula visible Class IV: Only hard plate visible Mallampati Classification: Class II Surgeon: dulce maria Diagnosis: gastric outlet obstruction Surgical Procedure: egd w/bx Anesthesia History: none Social History: smoking - nonsmoker Family History: no anesthesia problems Allergies: Coded Allergies: No Known Allergies (Unverified , 01/10/19) Medications: see eMAR Patient NPO?: Yes Past Medical History Cardiovascular: Reports: HTN Neurologic/Psychiatric: Reports: other - brain cysts Anesthesia Pre-op Phys. Exam Physician Exam Last Vital Signs Date Time Temp Pulse Resp B/P (MAP) Pulse Ox O2 Delivery O2 Flow Rate FiO2 01/12/19 04:00 97 01/12/19 00:00 98.0 16 136/88 (104) 97 01/11/19 21:00 Room Air Constitutional: NAD Neurologic: CN 2-12 intact Cardiovascular: RRR Respiratory: CTA Gastrointestinal: S/NT/ND Airway Exam Mallampati Score: Class II MO: full Neck: flexible TMD: 2fb ROM: full Anesthesia Pre-op A/P Labs Hematology Test 01/12/19 06:50 White Blood Count 8.2 K/UL (4.8-10.8) Red Blood Count 4.59 M/UL (4.70-6.10) L Hemoglobin 15.0 G/DL (14.2-18.0) Hematocrit 40.7 % (42.0-52.0) L Mean Corpuscular Volume 89 FL (80-99) Mean Corpuscular Hemoglobin 32.8 PG (27.0-31.0) H Mean Corpuscular Hemoglobin Concent 36.9 G/DL (32.0-36.0) H Red Cell Distribution Width 9.7 % (11.6-14.8) L Platelet Count 262 K/UL (150-450) Mean Platelet Volume 5.5 FL (6.5-10.1) L Neutrophils (%) (Auto) 77.0 % (45.0-75.0) H Lymphocytes (%) (Auto) 12.1 % (20.0-45.0) L Monocytes (%) (Auto) 8.3 % (1.0-10.0) Eosinophils (%) (Auto) 2.2 % (0.0-3.0) Basophils (%) (Auto) 0.4 % (0.0-2.0) Chemistry Test 01/11/19 17:35 01/12/19 06:50 Sodium Level 141 MMOL/L (136-145) 142 MMOL/L (136-145) Potassium Level 3.7 MMOL/L (3.5-5.1) 3.4 MMOL/L (3.5-5.1) L Chloride Level 109 MMOL/L (98-107) H 108 MMOL/L (98-107) H Carbon Dioxide Level 24 MMOL/L (21-32) 28 MMOL/L (21-32) Anion Gap 8 mmol/L (5-15) 7 mmol/L (5-15) Blood Urea Nitrogen 6 mg/dL (7-18) L 4 mg/dL (7-18) L Creatinine 0.7 MG/DL (0.55-1.30) 0.7 MG/DL (0.55-1.30) Estimat Glomerular Filtration Rate > 60 mL/min (>60) > 60 mL/min (>60) Glucose Level 94 MG/DL (74-106) 112 MG/DL (74-106) H Calcium Level 6.9 MG/DL (8.5-10.1) L 7.1 MG/DL (8.5-10.1) L Risk Assessment & Plan Assessment: asa3 Plan: mac Status Change Before Surgery: No Pre-Antibiotics Drug: Rox Dillard MD Jan 12, 2019 07:30
--- NOTE | 2019-01-12 07:32 | Endoscopy Procedure Note ---
Endoscopy Procedure Note General Indication for Procedure: abnormal CT scan Procedures Performed: EGD Operative Findings/Diagnosis: gastritis and duodenitis Specimen: yes Pt Tolerated Procedure Well: Yes Estimated Blood Loss: none Anesthesia Anesthesiologist: Efrain Martinez Anesthesia: MAC Medications Medication Given: see anesthesia record Inserted Devices Implant(s) used?: No GI Core Measures 50 yrs or older w/o bx or poly: Not Applicable 10yrs. F/U recommended: Not Applicable Iqra Tracey MD Jan 12, 2019 07:32
--- NOTE | 2019-01-12 07:33 | Brief Operative Note ---
Immediate Post Operative Note Operative Note Chief Complaint: abnormal CT Pre-op Diagnosis: abnormal CT, suspected gastric outlet obstruction Procedure: EGD, Biopsy Post-op Diagnosis: gastritis and duodenitis Surgeon: dulce maria Anesthesiologist: Efrain Martinez Anesthesia: MAC Specimen: yes Complications: none Condition: stable Fluids: per anesthesia Estimated Blood Loss: none Drains: none Implant(s) used?: No Iqra Tracey MD Jan 12, 2019 07:33
--- NOTE | 2019-01-12 08:58 | General Progress Note ---
Assessment/Plan Assessment/Plan: Impression: Palpitations Pyloric stenosis ? gastritis Dehydration Seizure Disorder Speech Impediment Plan: - IVF - Monitor labs - advance diet once cleared by gi -EGD noted - dc planning pending gi and gs evaluation impression, plan, and exam edited and reviewed in detail care discussed with RN Subjective Allergies: Coded Allergies: No Known Allergies (Unverified , 01/10/19) Subjective post EGD gastritis and duodenitis Objective Last 24 Hour Vital Signs Date Time Temp Pulse Resp B/P (MAP) Pulse Ox O2 Delivery O2 Flow Rate FiO2 01/12/19 08:43 Room Air 01/12/19 08:00 97.6 100 20 132/90 98 Room Air 01/12/19 07:50 101 19 137/92 100 Room Air 01/12/19 07:45 98 21 132/97 100 Nasal Cannula 3 01/12/19 07:38 97.7 101 18 137/83 100 Nasal Cannula 3 01/12/19 04:00 97 01/12/19 00:00 98.0 92 16 136/88 (104) 97 01/12/19 00:00 92 01/11/19 21:00 Room Air 01/11/19 20:00 98.5 100 17 142/94 (110) 98 01/11/19 20:00 100 01/11/19 16:00 97.1 110 18 118/75 (89) 97 20 01/11/19 16:00 108 01/11/19 12:00 118 01/11/19 12:00 97.7 94 18 115/90 (98) 97 94 01/11/19 09:00 Room Air Intake and Output 01/11/19 01/12/19 18:59 06:59 Intake Total 1300 ml 1500 ml Output Total 1800 ml Balance 1300 ml -300 ml IV Total 1300 ml 1500 ml Output Urine Total 1800 ml # Voids 3 4 # Bowel Movements 2 Laboratory Tests 01/11/19 17:35: Sodium Level 141, Potassium Level 3.7, Chloride Level 109H, Carbon Dioxide Level 24, Anion Gap 8, Blood Urea Nitrogen 6L, Creatinine 0.7, Estimat Glomerular Filtration Rate > 60, Glucose Level 94, Calcium Level 6.9L 01/12/19 06:50: Sodium Level 142, Potassium Level 3.4L, Chloride Level 108H, Carbon Dioxide Level 28, Anion Gap 7, Blood Urea Nitrogen 5L, Creatinine 0.7, Estimat Glomerular Filtration Rate > 60, Glucose Level 112H, Calcium Level 7.1L, White Blood Count 8.2, Red Blood Count 4.59L, Hemoglobin 15.0, Hematocrit 40.7L, Mean Corpuscular Volume 89, Mean Corpuscular Hemoglobin 32.8H, Mean Corpuscular Hemoglobin Concent 36.9H, Red Cell Distribution Width 9.7L, Platelet Count 262, Mean Platelet Volume 5.5L, Neutrophils (%) (Auto) 77.0H, Lymphocytes (%) (Auto) 12.1L, Monocytes (%) (Auto) 8.3, Eosinophils (%) (Auto) 2.2, Basophils (%) (Auto ) 0.4 Height (Feet): 5 Height (Inches): 8.00 Weight (Pounds): 170 Objective WDWN NAD clear breath sounds bilaterally without rhonchi or wheeze [id number] without MRG NABS nontender no HSM no CCE nonfocal Kurt Isaac MD Jan 12, 2019 08:58
[2019-01-12] MEDS: Heparin 5000 units/ml inj SUBQ SCH ×2 (09:00→20:45)
[2019-01-12] MEDS: Pantoprazole Inj IVP SCH (09:47)
[2019-01-12] MEDS: levETIRAcetam 500mg/5ml Liquid NG SCH (09:47)
--- NOTE | 2019-01-12 09:50 | Immediate Post-Op Evaluation ---
Immediate Post-Op Evalulation Immediate Post-Op Evalulation Procedure: egd w/bx Date of Evaluation: Jan 12, 2019 Time of Evaluation: 07:50 IV Fluids: 200ml 0.9ns Blood Products: none Estimated Blood Loss: negligible Blood Pressure Systolic: 139 Blood Pressure Diastolic: 83 Pulse Rate: 101 Respiratory Rate: 18 O2 Sat by Pulse Oximetry: 100 Temperature (Fahrenheit): 97.7 Pain Score (1-10): 0 Nausea: No Vomiting: No Complications none Patient Status: awake, reacts, patent Hydration Status: adequate Drug: Rox Dillard MD Jan 12, 2019 09:50
--- NOTE | 2019-01-12 09:52 | 48 Hour Post Anesthesia Eval ---
Post Anesthesia Evaluation Procedure: egd w/bx Date of Evaluation: Jan 12, 2019 Time of Evaluation: 07:52 Blood Pressure Systolic: 137 0: 92 Pulse Rate: 101 Respiratory Rate: 18 Temperature (Fahrenheit): 97.7 O2 Sat by Pulse Oximetry: 100 Airway: patent Nausea: No Vomiting: No Pain Intensity: 0 Hydration Status: adequate Cardiopulmonary Status: stable Mental Status/LOC: patient returned to baseline Post-Anesthesia Complications: none Follow-up care needed: N/A Rox Rollins MD Jan 12, 2019 09:52
--- NOTE | 2019-01-12 14:25 | Surgery Progress Note ---
Surgery Progress Note Subjective Additional Comments no acute events EGD today with gastritis and duodenitis no obstruction ng tube out comfortable no n/v/f/c flatus Objective Last 24 Hour Vital Signs Date Time Temp Pulse Resp B/P (MAP) Pulse Ox O2 Delivery O2 Flow Rate FiO2 01/12/19 12:00 99.4 117 17 142/91 (108) 98 01/12/19 09:52 101 18 100 01/12/19 09:50 101 18 100 01/12/19 08:43 Room Air 01/12/19 08:00 97.6 100 20 132/90 98 Room Air 01/12/19 08:00 94 01/12/19 07:50 101 19 137/92 100 Room Air 01/12/19 07:45 98 21 132/97 100 Nasal Cannula 3 01/12/19 07:38 97.7 101 18 137/83 100 Nasal Cannula 3 01/12/19 04:00 97 01/12/19 00:00 98.0 92 16 136/88 (104) 97 01/12/19 00:00 92 01/11/19 21:00 Room Air 01/11/19 20:00 98.5 100 17 142/94 (110) 98 01/11/19 20:00 100 01/11/19 16:00 97.1 110 18 118/75 (89) 97 20 01/11/19 16:00 108 I&O Intake and Output 01/11/19 01/12/19 18:59 06:59 Intake Total 1300 ml 1500 ml Output Total 1800 ml Balance 1300 ml -300 ml IV Total 1300 ml 1500 ml Output Urine Total 1800 ml # Voids 3 4 # Bowel Movements 2 Dressing: other Wound: other Drains: other Cardiovascular: RSR Respiratory: clear Abdomen: soft, non-tender, present bowel sounds, non-distended Extremities: no edema, no tenderness, no cyanosis Laboratory Tests Test 01/11/19 17:35 01/12/19 06:50 Sodium Level 141 MMOL/L (136-145) 142 MMOL/L (136-145) Potassium Level 3.7 MMOL/L (3.5-5.1) 3.4 MMOL/L (3.5-5.1) L Chloride Level 109 MMOL/L (98-107) H 108 MMOL/L (98-107) H Carbon Dioxide Level 24 MMOL/L (21-32) 28 MMOL/L (21-32) Anion Gap 8 mmol/L (5-15) 7 mmol/L (5-15) Blood Urea Nitrogen 6 mg/dL (7-18) L 5 mg/dL (7-18) L Creatinine 0.7 MG/DL (0.55-1.30) 0.7 MG/DL (0.55-1.30) Estimat Glomerular Filtration Rate > 60 mL/min (>60) > 60 mL/min (>60) Glucose Level 94 MG/DL (74-106) 112 MG/DL (74-106) H Calcium Level 6.9 MG/DL (8.5-10.1) L 7.1 MG/DL (8.5-10.1) L White Blood Count 8.2 K/UL (4.8-10.8) Red Blood Count 4.59 M/UL (4.70-6.10) L Hemoglobin 15.0 G/DL (14.2-18.0) Hematocrit 40.7 % (42.0-52.0) L Mean Corpuscular Volume 89 FL (80-99) Mean Corpuscular Hemoglobin 32.8 PG (27.0-31.0) H Mean Corpuscular Hemoglobin Concent 36.9 G/DL (32.0-36.0) H Red Cell Distribution Width 9.7 % (11.6-14.8) L Platelet Count 262 K/UL (150-450) Mean Platelet Volume 5.5 FL (6.5-10.1) L Neutrophils (%) (Auto) 77.0 % (45.0-75.0) H Lymphocytes (%) (Auto) 12.1 % (20.0-45.0) L Monocytes (%) (Auto) 8.3 % (1.0-10.0) Eosinophils (%) (Auto) 2.2 % (0.0-3.0) Basophils (%) (Auto) 0.4 % (0.0-2.0) Plan Problems: (1) Bowel obstruction Assessment & Plan: gastric outlet obstruction of unknown etiology improving with ng tube decompression states no pain labs okay exam benign abd soft, n/tnd, bs + passing flatus. diarrhea CTA abdomen pelvis: The abdominal aorta appears normal. Major vessels including the celiac artery, SMA, bilateral renal arteries and MARGOT appear normal. The iliac and visualized common femoral arteries are unremarkable. Mildly distended fluid-filled loops of small bowel noted within the abdomen. Consider enteritis/ileus. The appendix is normal. There is no free fluid. Both kidneys enhance normally. Kidneys are only seen during arterial phase. The liver is slightly hypodense. Gallbladder is unremarkable. IMPRESSION: No evidence of pulmonary embolus aortic dissection or aneurysm. Normal appearance of the abdominal aorta. Fatty liver Mild distended fluid-filled small bowel. Consider enteritis. Endoscopy without obstruction will monitor if mass or still obstruction, etc may need surgery will follow with recs clear liquids d/c planning iv fluids thank you Mack Bryant Jan 12, 2019 14:25
--- NOTE | 2019-01-12 14:45 | Procedure Note ---
DATE OF PROCEDURE: 01/12/2019 PROCEDURE: Upper gastrointestinal endoscopy with biopsy. SURGEON: Iqra Tracey M.D. ANESTHESIOLOGIST: Dr. Melara. PRE-ENDOSCOPIC DIAGNOSES: Nausea, vomiting, and CT scan suggestive of gastric outlet obstruction. POST-ENDOSCOPIC DIAGNOSES: 1. Erosive gastritis. 2. Erosive duodenitis. 3. Mild gastroesophageal reflux. 4. Status post random biopsies of the antrum and duodenum. 5. No evidence of pyloric channel stenosis or obstruction. DESCRIPTION OF PROCEDURE: The procedure, its risks, indications, alternatives, and possible complications were explained and informed consent was obtained. The patient was then sedated in the left lateral decubitus position. A diagnostic upper endoscope was introduced through oropharynx and advanced to the duodenum. The endoscope was then gradually withdrawn and the mucosa examined carefully. Examination of the upper gastrointestinal mucosa revealed erosive duodenitis as well as erosive gastritis most prominently in the antrum. In the gastroesophageal junction, there was some irregularity and erosive changes consistent with gastroesophageal reflux. The pylorus appeared to be open and there was no evidence of pyloric stenosis or gastric outlet obstruction. The endoscope was then easily passed through the pyloric channel. Biopsies of the duodenum and antrum were sent to pathology for review. Biopsies of the fundus were also sent separately to pathology for review. The endoscope was removed. The patient was sent to recovery in good condition. COMPLICATIONS: None. ASSESSMENT: This examination was negative for any evidence of the pyloric obstruction. The gastric dilation seen on CT imaging may be due to gastroparesis as a functional process got obstructive phenomena. The functional deficits may be result of an infectious viral pathology which will hopefully resolve with conservative management. RECOMMENDATIONS: 1. Discontinue nasogastric tube. 2. Begin clear liquid diet. 3. Observe for further nausea and vomiting. 4. Check stool cultures given recent history of diarrhea. Iqra Tracey M.D. DR: Edilson JOB#: [id number] CC:
[2019-01-12] MEDS: levETIRAcetam 500mg/5ml Liquid ORAL SCH (20:44)
[2019-01-13] VITALS: BP 132/91
--- NOTE | 2019-01-13 01:00 | Progress Note ---
DATE: 01/12/2019 CARDIOLOGY PROGRESS NOTE SUBJECTIVE: The patient is status post endoscopy. Findings included gastritis and possible pyloric stenosis. Surgical evaluation is pending. The patient has sinus rhythm and sinus tachycardia on monitor. OBJECTIVE: VITAL SIGNS: Blood pressure 132/90, heart rate 101, respiratory rate 20, and afebrile. HEENT: NG tube in place. LUNGS: Diminished breath sounds. CARDIAC: Regular rhythm and rate. Normal S1, S2. ABDOMEN: Slightly distended, but soft. LABORATORY DATA: White count 8.2 and hemoglobin 15. Potassium 3.4, BUN 5, and creatinine 0.7. Echocardiogram revealed normal ejection fraction and no valvular pathology. IMPRESSION: 1. No signs of structural heart disease. Hemodynamically stable following endoscopy. 2. Gastritis and duodenitis, possible pyloric stenosis. 3. Sinus tachycardia secondary to high catecholamine state. 4. Hypokalemia. PLAN: 1. Await surgical evaluation. 2. No antiplatelet or anticoagulant therapy. 3. Potassium replacement. 4. Check magnesium. 5. Maintenance hydration. 6. No role for antiarrhythmics. 7. Okay to discontinue telemetry. Jesus Blair M.D. DR: Jamal JOB#: [id number] CC:
[2019-01-13 04:00] VITALS: BP 139/72
[2019-01-13] MEDS: Potassium Phosphate 20 MEQ in D5NS 1,000 ML IV SCH (06:15)
[2019-01-13 08:00] VITALS: BP 133/88
[2019-01-13] MEDS: Heparin 5000 units/ml inj SUBQ SCH ×2 (09:00→09:18)
[2019-01-13] MEDS: Pantoprazole Inj IVP SCH (09:17)
[2019-01-13] MEDS: levETIRAcetam 500mg/5ml Liquid ORAL SCH (09:17)
--- NOTE | 2019-01-13 21:05 | General Progress Note ---
Assessment/Plan Assessment/Plan: Assessment: - gastritis, duodenitis - diarrhea, enteritis - improved - mild hypokalemia - volume depletion - secondary sinus tach Recommendations: - PPI - stool cultures - IV hydration - replace lytes PRN Subjective Allergies: Coded Allergies: No Known Allergies (Unverified , 01/10/19) Subjective Feels OK feels well tolerating PO Objective Last 24 Hour Vital Signs Date Time Temp Pulse Resp B/P (MAP) Pulse Ox O2 Delivery O2 Flow Rate FiO2 01/13/19 09:00 Room Air 01/13/19 08:00 98.4 85 18 133/88 (103) 98 01/13/19 08:00 84 01/13/19 04:00 101 01/13/19 04:00 97.7 80 19 139/72 (94) 97 01/13/19 00:00 98.2 89 18 132/91 (105) 98 01/13/19 00:00 89 Intake and Output 01/12/19 01/13/19 19:00 07:00 Intake Total 1335 ml 1250 ml Output Total 700 ml Balance 635 ml 1250 ml Intake Oral 360 ml IV Total 975 ml 1250 ml Output Urine Total 700 ml Estimated Blood Loss 0 ml # Voids 1 Height (Feet): 5 Height (Inches): 8.00 Weight (Pounds): 156 Objective WDWN man NCAT, (+) NGT supple CTA RR abd soft ND no edema Iqra Tracey MD Jan 13, 2019 21:05
--- NOTE | 2019-01-14 02:46 | Progress Note ---
DATE: 01/13/2019 CARDIOLOGY PROGRESS NOTE SUBJECTIVE: Feels better. Tolerating oral intake. No complications from endoscopy or associated anesthesia. OBJECTIVE: VITAL SIGNS: Blood pressure 133/88, pulse 85, and respirations 18. LUNGS: Clear. CARDIAC: Regular. No murmur. ABDOMEN: Slightly distended, but soft. EXTREMITIES: There is no edema. IMPRESSION: 1. No signs of structural heart disease. 2. Episodes of elevated diastolic blood pressure. 3. Gastritis, duodenitis, and improved enteritis. 4. Resolved secondary sinus tachycardia. 5. Hypovolemia, dehydration, and hypokalemia, all corrected. PLAN: 1. Outpatient blood pressure monitoring. 2. No additional cardiovascular interventions presently planned. 3. Stable for discharge from cardiovascular standpoint. Jesus Blair M.D. DR: ANTONINA JOB#: [id number] CC:
--- NOTE | 2019-01-14 12:56 | Discharge Summary ---
Discharge Summary Discharge Summary _ DATE OF ADMISSION: 01/10/2019 DATE OF DISCHARGE: 01/13/2019 Patient left AGAINST MEDICAL ADVICE REASON FOR ADMISSION: 48 years old male with history of hypertension, seizure disorder, speech impediment , presented with palpitations, started earlier in the morning. He denied chest pain or shortness of breath. He denied nausea and vomiting. Patient reported history of tachycardia in the past which resolved spontaneously. Vital signs revealed low-grade fever, tachycardia, blood pressure diastolic was elevated 148/100. Pulse oximetry was stable on room air. Urine toxicology screen was negative. EKG revealed sinus tachycardia , no acute ischemic changes. Troponin 0.041. pro BNP 69. Chest x-ray demonstrated no acute cardiopulmonary pathology. CTA of the chest ,abdomen ,pelvis revealed no evidence of pulmonary emboli, aortic dissection or aneurysm. Normal appearance of abdominal aorta. Fatty liver. Mildly distended fluid-filled small bowels, consider enteritis. Laboratory work-up demonstrated no leukocytosis , stable hemoglobin and hematocrit and platelet count. Stable electrolytes and renal parameters. Phosphorus 2.3. Stable LFT. Albumin 3.7. Patient was admitted for further management. CONSULTANTS: devops developer GI specialist Dr. Tracey surgery Dr. Bryant [facility]SE: Patient admitted to medical surgical floor. General surgeon closely followed. NG tube was placed to low intermittent suction for bowel decompression. Abdominal x-ray confirmed placement. Patient was kept n.p.o. , on IV fluids. Pain management was addressed. Supplemental oxygen titrated as needed to keep pulse oximetry above 92% Historical Site Guide followed. Telemetry demonstrated sinus tachycardia , no evidence of arrhythmia. Echocardiogram demonstrated preserved ejection fraction of 60 to 65%. No evidence of pericardial effusion. No evidence of structural heart disease. Right ventricular systolic pressure of 16. TSH was within normal limits as well as free T4 and T3. Patient had episodes of elevated diastolic blood pressure. Secondary sinus tachycardia resolved , was probably due to high catecholamine state as per devops developer. Historical Site Guide recommended no additional cardiovascular intervention. No antiplatelet and anticoagulation therapy in this setting was required. No role for anti-arrhythmics. GI specialist followed. Antiemetic provided as needed. GI prophylaxis with IV PPI provided. Patient was continued on IV hydration . Stool cultures were ordered. Patient undergone on 01/12 upper endoscopy with biopsy. At the time of this dictation the biopsy results still pending. Endoscopy revealed erosive gastritis, erosive duodenitis, mild GERD. Status post random biopsy of the antrum and duodenum . No evidence of pyloric stenosis or obstruction. Surgeon closely followed. NG tube was discontinued. Patient started on clear liquid diet as tolerated. Patient remained asymptomatic: no nausea, no vomiting, no fever, no chills, passing flatus. Abdominal exam with benign. Surgeon recommended continue close monitoring , and if mass or still obstruction may need surgery. Potassium, phosphorus and magnesium were replaced. Urinalysis revealed no evidence of urinary tract infection . Seizure precaution maintained. Keppra continued. No evidence of seizure activity while in the hospital. Supportive care provided. Pain management was addressed. DVT prophylaxis provided. Patient decided to leave AGAINST MEDICAL ADVICE. The risks and consequences of signing AGAINST MEDICAL ADVICE were discussed with patient in detail. Patient verbalized understanding, nevertheless signed AMA form and left. FINAL DIAGNOSES: Palpitations Sinus tachycardia secondary to high catecholamine state Dehydration Gastric outlet obstruction of unknown etiology Enteritis Status post EGD Erosive gastritis Erosive duodenitis Mild gastroesophageal reflux Electrolyte imbalance/hypokalemia, hypomagnesemia Seizure disorder Episode of elevated diastolic blood pressure Speech impediment I have been assigned to dictate discharge summary for this account. I was not involved in the patient's management. Chelsey Ralph NP Jan 14, 2019 12:56
== END 2019-01-13 10:50 | disposition left against medical advice (07) | DRG 310 ==
LOC: EDBD 12:12 → EMR 14:05 → EDBEDREQSVC 15:18 → EDBEDREQ 15:52 → 4E 16:05 → EDBEDREQ 17:32 → 2E 17:35
PROC: 0DB98ZX Excision of Duodenum, Via Natural or Artificial Opening Endoscopic, Diagnostic (ICD-10-PCS; principal; 2019-01-12 07:21)
PROC: 0DB78ZX Excision of Stomach, Pylorus, Via Natural or Artificial Opening Endoscopic, Diagnostic (ICD-10-PCS; principal; 2019-01-12 07:21)
DX: R00.0 Tachycardia, unspecified (principal); R00.2 Palpitations; E86.0 Dehydration; I10 Essential (primary) hypertension; K29.60 Other gastritis without bleeding; K29.80 Duodenitis without bleeding; K21.9 Gastro-esophageal reflux disease without esophagitis; G40.909 Epilepsy, unspecified, not intractable, without status epilepticus; R47.9 Unspecified speech disturbances; K52.9 Noninfective gastroenteritis and colitis, unspecified; R03.0 Elevated blood-pressure reading, without diagnosis of hypertension; K29.00 Acute gastritis without bleeding; E87.6 Hypokalemia; E83.42 Hypomagnesemia; Z79.82 Long term (current) use of aspirin; E83.39 Other disorders of phosphorus metabolism; K76.0 Fatty (change of) liver, not elsewhere classified; E27.9 Disorder of adrenal gland, unspecified
CPT/HCPCS: 36415; 71045; 71275; 74018; 74174; 80048; 80053; 80307; 81003; 83690; 83735; 83880; 84100; 84439; 84443; 84481; 84484; 85007; 85025; 85610; 85730; 93005; 93306; 94003; 94150; 96361; 96374; 96375; 99285; J2405; J2765; J7030; J8499